=== PATIENT | female | born 1970 | race Caucasian/White ===

== ENCOUNTER → 2018-09-04 07:24 | Outpatient (CLI) | payer OTHER, SELFPAY ==
[2018-09-04 08:30] LABS: Alanine Aminotransferase 22 IU/L (9-52); Albumin 4.3 g/dL (3.5-5.0); Albumin Globulin Ratio 1.7 (1.0-2.8); Alkaline Phosphatase 70 U/L (38-126); Aspartate Aminotransferase 18 IU/L (14-36); BUN Creatinine Ratio 18.3 (6-22); Bilirubin Total 0.8 mg/dL (0.2-1.3); Blood Urea Nitrogen 11 mg/dL (7-17); Calcium 9.8 mg/dL (8.4-10.2); Carbon Dioxide 29 mmol/L (22-32); Chloride 101 mmol/L (98-107); Cholesterol 216 mg/dL (140-199); Estimated Glomerular Filt Rate > 60.0 mL/min (>60); Globulin 2.5 g/dL (1.7-4.1); Glucose 80 mg/dL (70-100); HDL Cholesterol 42 mg/dL (40-60); HEMOLYSIS < 15 (0-50); LDL Cholesterol Calculated 134 mg/dL (<100); Potassium 4.6 mmol/L (3.4-5.1); Sodium 142 mmol/L (137-145); Total Protein 6.8 g/dL (6.3-8.2); Triglycerides 198 mg/dL (35-150)
[2018-09-04 08:35] LABS: Hemoglobin A1C% w Est Avg Glu 4.8 % (4.0-6.0)
== END ==
PROVIDERS: PCP Physician Assistant; Visit Provider Physician Assistant
DX: E78.5 Hyperlipidemia, unspecified (principal); E88.81 Metabolic syndrome and other insulin resistance
CPT/HCPCS: 36415; 80053; 80061; 83036

== ENCOUNTER → 2019-06-02 07:22 | Outpatient (CLI) | payer OTHER, SELFPAY ==
[2019-06-02 08:02] LABS: Hemoglobin A1C% w Est Avg Glu 4.7 % (4.0-6.0)
[2019-06-02 08:17] LABS: Alanine Aminotransferase 17 IU/L (9-52); Albumin 4.3 g/dL (3.5-5.0); Albumin Globulin Ratio 1.5 (1.0-2.8); Alkaline Phosphatase 84 U/L (38-126); Aspartate Aminotransferase 19 IU/L (14-36); BUN Creatinine Ratio 18.3 (6-22); Bilirubin Total 0.6 mg/dL (0.2-1.3); Blood Urea Nitrogen 11 mg/dL (7-17); Carbon Dioxide 30 mmol/L (22-32); Chloride 100 mmol/L (98-107); Cholesterol 253 mg/dL (140-199); Estimated Glomerular Filt Rate > 60.0 mL/min (>60); Globulin 2.9 g/dL (1.7-4.1); Glucose 99 mg/dL (70-100); HDL Cholesterol 46 mg/dL (40-60); HEMOLYSIS < 15 (0-50); Potassium 4.7 mmol/L (3.4-5.1); Sodium 137 mmol/L (137-145); Total Protein 7.2 g/dL (6.3-8.2); Triglycerides 435 mg/dL (35-150)
[2019-06-02 08:48] LABS: Microalbumi Creatinin Ratio Ur 3.8 ug/mg CR (<30); Microalbumin Urine Random 0.7 mg/dL (0-1.6)
== END ==
PROVIDERS: PCP Physician Assistant; Visit Provider Physician Assistant
DX: E78.2 Mixed hyperlipidemia (principal); R73.01 Impaired fasting glucose
CPT/HCPCS: 36415; 80053; 80061; 82043; 82570; 83036

== ENCOUNTER → 2020-08-30 17:04 | Outpatient (CLI) | payer OTHER, SELFPAY ==
[2020-08-30 18:10] LABS: Add Manual Diff / Slide Review NO; Basophils Absolute Auto 0 /uL (0-100); Basophils Percent Auto 0.5 % (0-2); Eosinophils Absolute Auto 100 /uL (0-450); Eosinophils Percent Auto 1.1 % (2-4); Hematocrit 41.5 % (36-46); Lymphocytes Absolute Auto 2100 /uL (1100-4500); Lymphocytes Percent Auto 30.3 % (25-40); Mean Corpuscular HGB Conc 33.8 % (30-36); Mean Corpuscular Hemoglobin 30.3 PG (26-34); Mean Corpuscular Volume 89.7 fL (80-100); Monocytes Absolute Auto 400 /uL (0-900); Monocytes Percent Auto 5.1 % (3-14); Neutrophils Absolute Auto 4400 /uL (1500-7000); Platelet Count 272 X10^3/uL (150-400); Red Blood Cell Count 4.63 X10^6/uL (4.0-5.2); Red Cell Distribution Width 13.3 % (11.6-14.8); White Blood Cell Count 7.1 X10^3/uL (4.5-11.0)
[2020-08-30 18:14] LABS: Appearance Urine UA CLEAR; Bilirubin Urine UA NEGATIVE (NEGATIVE); Color Urine UA YELLOW; Glucose Urine UA NEGATIVE (Negative); Ketones Urine UA NEGATIVE (NEGATIVE); Leukocyte Esterase Urine UA NEGATIVE (NEGATIVE); Nitrite Urine UA NEGATIVE (Negative); Occult Blood Urine UA NEGATIVE (Negative); Protein Urine UA NEGATIVE (Negative); Specific Gravity Urine UA 1.025 (1.000-1.035); Urobilinogen Urine UA 0.2 E.U./dL (0.2)
[2020-08-30 18:22] LABS: Alanine Aminotransferase 20 IU/L (<35); Albumin 4.6 g/dL (3.5-5.0); Albumin Globulin Ratio 1.4 (1.0-2.8); Alkaline Phosphatase 73 U/L (38-126); Aspartate Aminotransferase 23 IU/L (14-36); BUN Creatinine Ratio 15.1 (6-22); Bilirubin Total 0.8 mg/dL (0.2-1.3); Blood Urea Nitrogen 11 mg/dL (7-17); Carbon Dioxide 31 mmol/L (22-32); Chloride 101 mmol/L (98-107); Cholesterol 228 mg/dL (140-199); Estimated Glomerular Filt Rate > 60.0 mL/min (>60); Globulin 3.3 g/dL (1.7-4.1); Glucose 85 mg/dL (70-100); HDL Cholesterol 52 mg/dL (40-60); HEMOLYSIS < 15 (0-50); Hemoglobin A1C% w Est Avg Glu 4.9 % (4.0-6.0); LDL Cholesterol Calculated 156 mg/dL (<100); Potassium 3.8 mmol/L (3.4-5.1); Sodium 137 mmol/L (137-145); Total Protein 7.9 g/dL (6.3-8.2); Triglycerides 100 mg/dL (35-150)
[2020-08-30 18:48] LABS: pH Urine UA 5.5 (4.5-8.0)
[2020-08-30 18:50] LABS: Bacteria Urine Occasional (0-1); Culture Indicated Urine Cult Not Indicated; Mucus Urine 2+ (Negative); RBC Urine 1-5/HPF (0-5/HPF); Squamous Epithelial Cell Urine 1-5 /HPF (0-5/HPF); WBC Urine 1-5/HPF (0-5/HPF)
[2020-08-30 18:52] LABS: TSH w/ Reflex to FT4 2.03 uIU/mL (0.47-4.68)
== END ==
PROVIDERS: PCP Family Medicine; Referring Provider Family Medicine; Visit Provider Family Medicine
DX: Z00.00 Encounter for general adult medical examination without abnormal findings (principal); K58.9 Irritable bowel syndrome, unspecified
CPT/HCPCS: 36415; 80053; 80061; 81001; 83036; 84443; 85025

== ENCOUNTER → 2020-09-23 12:32 | Outpatient (CLI) | payer OTHER, SELFPAY ==
--- NOTE | 2020-09-23 | DI.MG.S_ITS ---
UNILATERAL RIGHT DIGITAL DIAGNOSTIC MAMMOGRAM 3D/2D WITH ADDITIONAL VIEWS: 09/23/2020 CLINICAL: Additional evaluation requested from prior study. Comparison is made to exams dated: 08/20/2020 mammogram - [facility], 09/23/2017 mammogram, and 08/14/2016 mammogram - [facility]. There are scattered fibroglandular elements in right breast. The previously described possible developing architectural distortion in the right breast posterior depth lateral region seen on the craniocaudal view only is not reproduced and presumably represented superimposed breast tissue. No other significant masses or calcifications are seen in the breast. IMPRESSION: INCOMPLETE: NEEDS ADDITIONAL IMAGING EVALUATION The previously described asymmetry disperses with additional views and is consistent with summation artifact; however, US is recommended to confirm and is scheduled to immediately follow this exam. This exam was interpreted at Station ID: [id number]. NOTE: For mammograms, a report in lay terms will be sent to the patient. Approximately 15% of breast malignancies will not be visualized mammographically. In the management of a palpable breast mass, a negative mammogram must not discourage biopsy of a clinically suspicious lesion. Electronically Signed By: Mayank Watt M.D. aty/:09/23/2020 14:29:32 ACR BI-RADS Category 0: Incomplete [id number]
--- NOTE | 2020-09-23 12:33 | DI.US.S_ITS ---
PROCEDURE: US PELVIC COMPLETE INDICATIONS: Hx of ovarian cancer TECHNIQUE: Real-time scanning was performed of the pelvic organs, with image documentation. Additional endovaginal scanning was necessary due to incomplete visualization of the adnexal and endometrial structures by transabdominal scanning. COMPARISON: [facility], , PELVIC COMPLETE, 07/27/2008, 15:19. FINDINGS: Transabdominal scanning: A mild amount of free pelvic fluid is seen, which is considered to be within physiologic limits. Limited scanning through the kidneys shows no hydronephrosis. Endovaginal scanning: Uterus: Removed. The vaginal cuff is unremarkable. Ovaries: Status post right oophorectomy. The left ovary measures 4.4 x 2.5 x 2.1 cm. There is a cyst seen that measures up to 2.3 cm. The left ovary is only seen transabdominally. No adnexal masses are seen on either side. IMPRESSION: Status post hysterectomy and right oophorectomy. No adnexal masses are seen on either side. The left ovary demonstrates a 2.3 cm simple cyst, which is considered to be within physiologic limits. Dictated by: Hiro Carmichael M.D. on 09/23/2020 at 16:06 Approved by: Hiro Carmichael M.D. on 09/23/2020 at 16:08
--- NOTE | 2020-09-23 12:33 | DI.US.S_ITS ---
ULTRASOUND OF RIGHT BREAST: 09/23/2020 CLINICAL: Patient returns today to evaluate a focal asymmetry in the right breast. Comparison is made to exams dated: 09/23/2020 mammogram - [facility], 08/20/2020 mammogram - [facility], 09/23/2017 mammogram, and 08/14/2016 mammogram - [facility]. Color flow and real-time ultrasound of the right breast were performed. Amanda scale images of the real-time examination were reviewed. There is a 0.3 cm x 0.4 cm oval simple cyst in the right breast at 9 o'clock posterior depth 10 cm from the nipple. This oval simple cyst is anechoic. This is an incidental finding. No sonographic abnormalities seen to correlate with resolved possible architectural distortion in the region seen on mammographic evaluation. IMPRESSION: BENIGN There is no sonographic evidence of malignancy. Incidental benign 0.3 cm x 0.4 cm oval simple cyst at 9 o'clock posterior depth. A 1 year screening mammogram is recommended. Findings and recommendations were conveyed to the patient during today's evaluation. This exam was interpreted at Station ID: [id number]. Electronically Signed By: Mayank Watt M.D. aty/:09/23/2020 14:32:52 letter sent: Normal Exam Ultrasound BI-RADS: 2 Benign
== END ==
PROVIDERS: PCP Family Medicine; Referring Provider Family Medicine; Visit Provider Family Medicine
DX: R92.8 Other abnormal and inconclusive findings on diagnostic imaging of breast (principal); N60.01 Solitary cyst of right breast; Z12.73 Encounter for screening for malignant neoplasm of ovary; Z85.43 Personal history of malignant neoplasm of ovary; N83.292 Other ovarian cyst, left side; Z90.710 Acquired absence of both cervix and uterus
CPT/HCPCS: 76642; 76830; 76856; 77065; G0279

== ENCOUNTER → 2020-10-28 10:16 | Outpatient (CLI) | payer OTHER, SELFPAY ==
[2020-10-28] MEDS: COVID-19 VACC(MODERNA-1)/PF 100 MCG/0.5 ML VIAL IM (10:24)
== END ==
PROVIDERS: PCP Family Medicine; Visit Provider Internal Medicine
DX: Z23 Encounter for immunization (principal)
CPT/HCPCS: 0011A; 91301

== ENCOUNTER → 2020-11-24 16:10 | Outpatient (CLI) | payer OTHER, SELFPAY ==
[2020-11-24] MEDS: COVID-19 VACC #2, MRNA(MOD) 100 MCG/0.5 ML VIAL IM (16:15)
== END ==
PROVIDERS: PCP Family Medicine; Visit Provider Internal Medicine
DX: Z23 Encounter for immunization (principal)
CPT/HCPCS: 0012A; 91301

== ENCOUNTER → 2021-03-23 13:49 | Outpatient (CLI) | payer OTHER, SELFPAY ==
[2021-03-23 14:15] LABS: Add Manual Diff / Slide Review NO; Basophils Absolute Auto 0 /uL (0-100); Basophils Percent Auto 0.6 % (0-2); Eosinophils Absolute Auto 200 /uL (0-450); Eosinophils Percent Auto 2.4 % (2-4); Hematocrit 40.7 % (36-46); Hemoglobin 13.4 g/dL (12.0-16.0); Lymphocytes Absolute Auto 2200 /uL (1100-4500); Lymphocytes Percent Auto 32.6 % (25-40); Mean Corpuscular Hemoglobin 29.5 PG (26-34); Mean Corpuscular Volume 89.3 fL (80-100); Monocytes Absolute Auto 500 /uL (0-900); Monocytes Percent Auto 7.2 % (3-14); Neutrophils Absolute Auto 3800 /uL (1500-7000); Neutrophils Percent Auto 57.2 % (50-75); Platelet Count 260 X10^3/uL (150-400); Red Blood Cell Count 4.56 X10^6/uL (4.0-5.2); White Blood Cell Count 6.7 X10^3/uL (4.5-11.0)
[2021-03-23 15:17] LABS: Alanine Aminotransferase 27 IU/L (<35); Albumin 4.5 g/dL (3.5-5.0); Albumin Globulin Ratio 1.5 (1.0-2.8); Alkaline Phosphatase 84 U/L (38-126); Aspartate Aminotransferase 29 IU/L (14-36); BUN Creatinine Ratio 20.3 (6-22); Bilirubin Total 0.5 mg/dL (0.2-1.3); Blood Urea Nitrogen 14 mg/dL (7-17); Calcium 10.2 mg/dL (8.4-10.2); Carbon Dioxide 27 mmol/L (22-32); Chloride 103 mmol/L (98-107); Estimated Glomerular Filt Rate > 60.0 mL/min (>60); Glucose 100 mg/dL (70-100); HEMOLYSIS < 15 (0-50); Potassium 4.6 mmol/L (3.4-5.1); Sodium 137 mmol/L (137-145); Total Protein 7.5 g/dL (6.3-8.2)
[2021-03-23 15:57] LABS: Thyroid Stimulating Hormone 0.772 uIU/mL (0.47-4.68)
== END ==
PROVIDERS: PCP Family Medicine; Referring Provider Registered Nurse; Visit Provider Registered Nurse
DX: E78.5 Hyperlipidemia, unspecified (principal); K58.9 Irritable bowel syndrome, unspecified; L65.9 Nonscarring hair loss, unspecified
CPT/HCPCS: 36415; 80053; 84443; 85025

== ENCOUNTER → 2021-03-24 10:26 | Outpatient (CLI) | payer OTHER, SELFPAY ==
[2021-03-24 12:11] LABS: Magnesium 2.1 mg/dL (1.6-2.3)
[2021-03-24 12:42] LABS: Free T3, Triiodothyronine Free 3.14 pg/mL (2.77-5.27); Free T4, Direct Thyroxine 0.86 ng/dL (0.78-2.19)
[2021-03-25 10:19] LABS: Thyroid Peroxidase Antibodies <9 IU/mL (0-34)
== END ==
PROVIDERS: PCP Family Medicine; Referring Provider Registered Nurse; Visit Provider Registered Nurse
DX: R53.83 Other fatigue (principal); Z79.899 Other long term (current) drug therapy
CPT/HCPCS: 36415; 83735; 84439; 84481; 86376

== ENCOUNTER → 2022-01-05 07:58 | Outpatient (CLI) | payer OTHER, SELFPAY ==
--- NOTE | 2022-01-05 07:59 | DI.US.S_ITS ---
PROCEDURE: US PELVIC COMPLETE INDICATIONS: FOLLOW-UP LEFT OVARIAN CYST TECHNIQUE: Real-time scanning was performed of the pelvic organs, with image documentation. Additional endovaginal scanning was necessary due to incomplete visualization of the adnexal and endometrial structures by transabdominal scanning. COMPARISON: [facility], , US PELVIC COMPLETE, 09/23/2020, 13:21. FINDINGS: Uterus: Removed. Ovaries: The right ovary is surgically absent. The left ovary measures 2.2 x 1.5 x 2.3 cm. Within it, there is a 1.4 x 0.8 x 0.9 cm simple cyst, which previously measured 2.3 x 2 x 2.1 cm. The left ovary is only seen transabdominally. No adnexal masses are seen on either side. Other: No pathologic free abdominal or pelvic fluid. IMPRESSION: Decreased size of the previously seen left ovarian cyst. This focus is considered to be within physiologic limits. Status post hysterectomy and right oophorectomy. We strive to produce accurate, complete, and clear reports of imaging services. To assist us in improving patient care, this report was composed using standard report templates and voice recognition software. Therefore, it may contain abnormal punctuation, insertions and/or omissions. Occasional wrong-word or sound-alike substitutions may occur. Though we review the report and make efforts to correct it, we do recommend that the report be read carefully in proper context to recognize any text inaccuracies. Dictated by: Hiro Carmichael M.D. on 01/05/2022 at 8:27 Approved by: Hiro Carmichael M.D. on 01/05/2022 at 8:29
== END ==
PROVIDERS: PCP Family Medicine; Referring Provider Family Medicine; Visit Provider Family Medicine
DX: R10.2 Pelvic and perineal pain (principal); N83.292 Other ovarian cyst, left side; Z85.43 Personal history of malignant neoplasm of ovary; Z90.710 Acquired absence of both cervix and uterus
CPT/HCPCS: 76830; 76856

== ENCOUNTER → 2022-06-12 16:58 | Outpatient (CLI) | payer OTHER, SELFPAY | PROVIDERS: PCP Family Medicine; Visit Provider Student in an Organized Health Care Education/Training Program | DX: N39.0 Urinary tract infection, site not specified (principal) | CPT/HCPCS: 87086 ==

== ENCOUNTER 2022-12-14 20:15 | Emergency (ER) | payer OTHER, SELFPAY ==
[2022-12-14 20:22] VITALS: BP 160/94; PULSE 77; RESP 22; TEMP 36.2; O2SAT 99; BMI 38.7
--- NOTE | 2022-12-14 20:40 | ED.HA ---
HPI - Headache General Chief Complaint: Headache Stated Complaint: Severe headache Time Seen by Provider: 12/14/22 20:36 Source: patient Mode of arrival: Ambulatory Limitations: no limitations History of Present Illness HPI Narrative: Patient is a 52 old female. Does have a history of migraine headaches. Is here for evaluation of a headache. States that it started this morning after she woke up and is progressively worse is the day went on. No fevers. She states it does feel somewhat different than her normal headaches is her normal headaches are normally does one-sided this is more generalized. No vision changes. Is having nausea. No fevers. Did try her medications at home prior to arrival without any improvement. Related Data Home Medications Medication Instructions Recorded Confirmed acetaminophen 500 mg tablet 1,000 mg PO PRN ##0 05/31/11 09/12/21 (Tylenol Extra Strength) loperamide 2 mg capsule (Imodium See Rx Instructions PO Q2-4H PRN 09/10/18 09/12/21 A-D) onabotulinumtoxinA 200 unit 200 unit IM .COMPLEX 09/10/18 09/12/21 solution for injection (Botox) Occipital nerve injections See Rx Instructions .Route .COMPLEX 06/04/19 09/12/21 theodore sinus PO BID 02/24/20 09/12/21 Previous Rx's Medication Instructions Recorded cetirizine 10 mg tablet 10 mg PO BID #60 tabs 09/12/21 epinephrine 0.3 mg/0.3 mL 0.3 mg (0.3 mL) IM Q5-15M PRN 09/12/21 injection, auto-injector (EpiPen anaphylaxis #2 ea 2-Sen) metformin 500 mg tablet 500 mg PO BID #180 tabs 09/12/21 sumatriptan succinate 100 mg 100 mg PO Q DAY PRN PRN migraine 09/12/21 tablet (Imitrex) headache #9 tabs tramadol 100 mg tablet 100 mg PO TID PRN pain #30 tabs 09/03/22 celecoxib 200 mg capsule See Rx Instructions .Route 09/12/22 .COMPLEX #90 caps fluoxetine 40 mg capsule See Rx Instructions .Route 09/12/22 .COMPLEX #90 caps nortriptyline 50 mg capsule See Rx Instructions .Route 09/12/22 .COMPLEX #90 caps pravastatin 20 mg tablet See Rx Instructions .Route 09/12/22 .COMPLEX #90 tabs tizanidine 4 mg tablet See Rx Instructions .Route 09/12/22 .COMPLEX #90 tabs estradiol 0.5 mg tablet 0.25 mg PO 3XW #90 tabs 10/01/22 azelastine 137 mcg (0.1 %) nasal 2 spray intranasal BID #30 mL 11/29/22 spray aerosol fenofibrate 160 mg tablet 160 mg PO QDAY #90 tabs 11/29/22 gabapentin 600 mg tablet 1,200 mg PO TID #180 tabs 11/29/22 (Neurontin) Allergies Allergy/AdvReac Type Severity Reaction Status Date / Time venom-honey bee Allergy Severe ANAPHYLACTIC Verified 12/14/22 20:25 [BEE VENOM (HONEY BEE)] SHOCK Penicillins [PENICILLINS] Allergy Intermediate SWELLING Verified 12/14/22 20:25 AND HIVES prochlorperazine AdvReac Intermediate JITTERY, Verified 12/14/22 20:25 [From COMPAZINE] HIGH PITCHED NOISE IN EARS, RESTLESSNESS Review of Systems Constitutional Constitutional: Reports system reviewed and no additional complaints, except as documented Eyes Eyes: Reports system reviewed and no additional complaints, except as documented ENT Ears, Nose, Mouth, and Throat: Reports system reviewed and no additional complaints, except as documented Gastrointestinal Gastrointestinal: Reports system reviewed and no additional complaints, except as documented Neurologic Neurologic: Reports system reviewed and no additional complaints, except as documented Hematologic/Lymphatic On Anticoagulants: No Patient History Medical History Breast anomaly Fatigue Fibrocystic breast changes, bilateral Internal thrombosed hemorrhoids Irritable bowel syndrome (IBS) Medication management Ovarian cyst Well adult exam Well adult exam Surgical History (Updated 09/12/21 @ 16:58 by Corey Maher DO) H/O hysterectomy with oophorectomy History of total left knee replacement Family History (Updated 09/12/21 @ 17:00 by Corey Maher DO) Mother AAA (abdominal aortic aneurysm) Daughter EDS (Bry-Danlos syndrome) Social History Smoking Status: Never smoker second hand exposure: Yes (As a child, until age 12) alcohol intake: current substance use type: does not use and other Smoking Status: Never smoker Substance Use Type: does not use Exam Initial Vital Signs Initial Vital Signs: Vital Signs Temperature 97.1 F L 12/14/22 20:22 Pulse Rate 77 12/14/22 20:22 Respiratory Rate 22 12/14/22 20:22 Blood Pressure 160/94 H 12/14/22 20:22 Pulse Oximetry 99 12/14/22 20:22 Oxygen Delivery Method 12/14/22 20:22 Const General: cooperative, healthy appearing and No ill appearing HENMT Head: normal to inspection Eyes General: Yes appearance normal, both eyes and all related structures Resp Effort & Inspection: normal respiratory effort Cardio Rate: regular rate Skin General: no rashes or lesions noted Neuro General: patient alert, patient awake, patient oriented x3 and moves all extremities Cognition: normal cognition Speech: speech normal Gait: normal gait Motor: muscle tone normal throughout Extrem General: normal to inspection Course Orders Ordered: Discontinued Medications Acetaminophen (Acetaminophen 325 Mg Tablet) 975 mg PO NOW ONE Stop: 12/14/22 20:41 Last Admin: 12/14/22 20:49 Dose: 975 mg Documented By: ALYSE Cyclobenzaprine HCl (Cyclobenzaprine 10 Mg Tablet) 10 mg PO NOW ONE Stop: 12/14/22 23:01 Last Admin: 12/14/22 23:04 Dose: 10 mg Documented By: AMAURI Cyclobenzaprine HCl (Cyclobenzaprine 10 Mg Prepack) 1 bottle MISC SEEINSTR ONE Stop: 12/14/22 23:38 Last Admin: 12/14/22 23:41 Dose: 1 bottle Documented By: AMAURI Diphenhydramine HCl (Diphenhydramine 50 Mg/Ml Vial) 25 mg IV NOW ONE Stop: 12/14/22 20:41 Last Admin: 12/14/22 20:48 Dose: 25 mg Documented By: ALYSE Hydromorphone HCl (Hydromorphone 0.5 Mg Inj) 0.5 mg IV NOW ONE Stop: 12/14/22 21:59 Last Admin: 12/14/22 22:18 Dose: 0.5 mg Documented By: AMAURI Sodium Chloride (Normal Saline 0.9%) 1,000 mls @ 1,000 mls/hr IV BOLUS ONE Stop: 12/14/22 21:39 Last Infusion: 12/14/22 21:49 Dose: 0 mls/hr Documented By: Admin: 12/14/22 20:48 Dose: 1,000 mls/hr Documented By: ALYSE Ketorolac Tromethamine (Ketorolac 30 Mg/Ml Vial) 30 mg IV NOW ONE Stop: 12/14/22 23:01 Last Admin: 12/14/22 23:04 Dose: 30 mg Documented By: AMAURI Metoclopramide HCl (Metoclopramide 10 Mg/2 Ml Inj) 10 mg IV NOW ONE Stop: 12/14/22 20:41 Last Admin: 12/14/22 20:49 Dose: 10 mg Documented By: ALYSE Vital Signs Vital signs: Vital Signs - 8 hr 12/14/22 20:22 12/14/22 23:43 Temperature 97.1 F L Pulse Rate 77 88 Respiratory Rate 22 16 Blood Pressure 160/94 H 144/72 H Pulse Oximetry 99 99 Oxygen Delivery Method Room Air MDM - Headache MDM Narrative Medical decision making narrative: After medications provided here in the emergency department patient's symptoms vastly improved. It was after the Toradol and the Flexeril that her headache improve the most. I suspect this was a tension headache. Low suspicion for intracranial hemorrhage. Low suspicion for meningitis. She denies any trauma. No indication for radiologic studies. After time and medications patient states she was feeling well enough to go home. Will discharge patient home with return precautions. She expressed understanding and agreement. Discharge Plan Departure Patient Disposition: Home Clinical Impression: Migraine Instructions: DI for Migraine Activity Restrictions/Additional Instructions: How recommend that you continue to take all of your medications as directed. Contact your primary doctor for a follow-up. Return to the emergency department for any new or worsening symptoms. Prescriptions: No Action onabotulinumtoxinA [Botox] 200 unit recon soln 200 unit IM .COMPLEX Label Comments: 200 unit IM Q 12 weeks; Rx Instructions: 200 unit IM Q 12 weeks; loperamide [Imodium A-D] 2 mg capsule See Rx Instructions PO Q2-4H PRN Label Comments: 2-4 tabs (2mg) PO every other day PRN Rx Instructions: 2-4 tabs (2mg) PO every other day PRN acetaminophen [Tylenol Extra Strength] 500 MG tablet 1,000 mg PO PRN Qty: 0 tramadol 100 mg tablet 100 mg PO TID PRN (Reason: pain) Qty: 30 2RF fluoxetine 40 mg capsule See Rx Instructions .ROUTE .COMPLEX Qty: 90 0RF Dose Instruction: TAKE 1 CAPSULE BY MOUTH DAILY Rx Instructions: TAKE 1 CAPSULE BY MOUTH DAILY tizanidine 4 mg tablet See Rx Instructions .ROUTE .COMPLEX Qty: 90 0RF Dose Instruction: TAKE 1 TABLET BY MOUTH AT BEDTIME Rx Instructions: TAKE 1 TABLET BY MOUTH AT BEDTIME nortriptyline 50 mg capsule See Rx Instructions .ROUTE .COMPLEX Qty: 90 0RF Dose Instruction: TAKE 1 CAPSULE BY MOUTH AT BEDTIME Rx Instructions: TAKE 1 CAPSULE BY MOUTH AT BEDTIME pravastatin 20 mg tablet See Rx Instructions .ROUTE .COMPLEX Qty: 90 0RF Dose Instruction: TAKE 1 TABLET BY MOUTH AT BEDTIME Rx Instructions: TAKE 1 TABLET BY MOUTH AT BEDTIME celecoxib 200 mg capsule See Rx Instructions .ROUTE .COMPLEX Qty: 90 0RF Dose Instruction: TAKE 1 CAPSULE BY MOUTH DAILY Rx Instructions: TAKE 1 CAPSULE BY MOUTH DAILY estradiol 0.5 mg tablet 0.25 mg PO 3XW Qty: 90 3RF gabapentin [Neurontin] 600 mg tablet 1,200 mg PO TID Qty: 180 0RF azelastine 137 mcg (0.1 %) aerosol,spray 2 spray NASAL BID Qty: 30 2RF fenofibrate 160 mg tablet 160 mg PO QDAY Qty: 90 0RF Occipital nerve injections See Rx Instructions .ROUTE .COMPLEX Label Comments: 1 injection about every 12 weeks. ; Rx Instructions: 1 injection about every 12 weeks. ; cetirizine 10 mg tablet 10 mg PO BID Qty: 60 2RF metformin 500 mg tablet 500 mg PO BID Qty: 180 3RF Rx Instructions: APPOINTMENT DUE FOR FURTHER REFILLS. THANK YOU! epinephrine [EpiPen 2-Sen] 0.3 mg/0.3 mL auto-injector 0.3 mg IM Q5-15M PRN (Reason: anaphylaxis) Qty: 2 3RF Rx Instructions: do not exceed 3 doses per episode sumatriptan succinate [Imitrex] 100 mg tablet 100 mg PO Q DAY PRN PRN (Reason: migraine headache) Qty: 9 3RF theodore sinus PO BID Referrals: Corey Maher DO [Primary Care Provider] - Stand Alone Forms: Patient Portal/API
[2022-12-14] MEDS: diphenhydrAMINE 50 MG/ML VIAL 25 MG IV (20:48)
[2022-12-14] MEDS: SODIUM CHLORIDE 0.9% 1,000 ML 1000 ML IV (20:48)
[2022-12-14] MEDS: ACETAMINOPHEN 325 MG TABLET 975 MG PO (20:49)
[2022-12-14] MEDS: METOCLOPRAMIDE 10 MG/2 ML INJ IV (20:49)
[2022-12-14] MEDS: HYDROMORPHONE 0.5 MG INJ IV (22:18)
[2022-12-14] MEDS: KETOROLAC 30 MG/ML VIAL IV (23:04)
[2022-12-14] MEDS: CYCLOBENZAPRINE 10 MG TABLET PO (23:04)
[2022-12-14] MEDS: CYCLOBENZAPRINE 10 MG PREPACK 1 BOTTLE MISC (23:41)
[2022-12-14 23:43] VITALS: BP 144/72; PULSE 88; RESP 16; O2SAT 99
== END 2022-12-14 23:45 | disposition home or self-care (01) ==
PROVIDERS: Emergency Provider Emergency Medicine; PCP Family Medicine
DX: G43.909 Migraine, unspecified, not intractable, without status migrainosus (principal)
CPT/HCPCS: 96361; 96374; 96375; 99284; J1170; J1200; J1885; J2765

== ENCOUNTER → 2023-01-04 07:42 | Outpatient (CLI) | payer OTHER, SELFPAY ==
[2023-01-04 09:18] LABS: Hemoglobin A1C% w Est Avg Glu 5.1 % (4.0-6.0)
[2023-01-04 09:20] LABS: Add Manual Diff / Slide Review NO; Basophils Absolute Auto 0 /uL (0-100); Basophils Percent Auto 0.9 % (0-2); Eosinophils Absolute Auto 200 /uL (0-450); Eosinophils Percent Auto 3.5 % (2-4); Hematocrit 40.5 % (36-46); Lymphocytes Absolute Auto 1800 /uL (1100-4500); Mean Corpuscular HGB Conc 34.7 % (30-36); Mean Corpuscular Hemoglobin 29.9 PG (26-34); Mean Corpuscular Volume 86.2 fL (80-100); Monocytes Absolute Auto 400 /uL (0-900); Monocytes Percent Auto 7.8 % (3-14); Neutrophils Absolute Auto 3000 /uL (1500-7000); Neutrophils Percent Auto 54.8 % (50-75); Platelet Count 240 X10^3/uL (150-400); Red Cell Distribution Width 13.2 % (11.6-14.8); White Blood Cell Count 5.4 X10^3/uL (4.5-11.0)
[2023-01-04 09:32] LABS: Alanine Aminotransferase 20 IU/L (<35); Albumin 4.1 g/dL (3.5-5.0); Albumin Globulin Ratio 1.6 (1.0-2.8); Alkaline Phosphatase 92 U/L (38-126); Aspartate Aminotransferase 19 IU/L (14-36); BUN Creatinine Ratio 19.7 (6-22); Bilirubin Total 0.4 mg/dL (0.2-1.3); Blood Urea Nitrogen 12 mg/dL (7-17); Calcium 9.9 mg/dL (8.4-10.2); Carbon Dioxide 30 mmol/L (22-32); Chloride 103 mmol/L (98-107); Cholesterol 260 mg/dL (140-199); Estimated Glomerular Filt Rate > 60 mL/min (>60); Globulin 2.6 g/dL (1.7-4.1); Glucose 88 mg/dL (70-100); HDL Cholesterol 52 mg/dL (40-60); HEMOLYSIS < 15 (0-50); LDL Cholesterol Calculated 158 mg/dL (<100); Potassium 4.5 mmol/L (3.4-5.1); Sodium 140 mmol/L (137-145); Total Protein 6.7 g/dL (6.3-8.2); Triglycerides 249 mg/dL (35-150)
[2023-01-04 09:50] LABS: Free T4, Direct Thyroxine 1.04 ng/dL (0.78-2.19)
[2023-01-04 10:04] LABS: Thyroid Stimulating Hormone 1.09 uIU/mL (0.47-4.68)
== END ==
PROVIDERS: PCP Family Medicine; Referring Provider Family Medicine; Visit Provider Family Medicine
DX: Z00.00 Encounter for general adult medical examination without abnormal findings (principal); E78.5 Hyperlipidemia, unspecified; E88.81 Metabolic syndrome and other insulin resistance; K58.9 Irritable bowel syndrome, unspecified; R53.83 Other fatigue
CPT/HCPCS: 36415; 80053; 80061; 83036; 84439; 84443; 85025

== ENCOUNTER → 2023-02-06 16:10 | Outpatient (CLI) | payer OTHER, SELFPAY ==
--- NOTE | 2023-02-06 16:12 | DI.US.S_ITS ---
PROCEDURE: US PELVIC COMPLETE INDICATIONS: L ovary cysts TECHNIQUE: Real-time scanning was performed of the pelvic organs, with image documentation. Additional endovaginal scanning was necessary due to incomplete visualization of the adnexal and endometrial structures by transabdominal scanning. COMPARISON: [facility], , US PELVIC COMPLETE, 01/05/2022, 8:15. FINDINGS: Uterus: Surgically absent Ovaries: The right ovary is not visualized. The left ovary measures 2.6 x 1.3 x 1.4 cm, with a calculated ovarian volume of 2.5 cc. The ovaries have a normal sonographic appearance. There is a dominant 1.4 cm left ovarian follicle. There are fewer than 12 follicles within the left ovary. No adnexal masses are seen. Other: No pathologic free abdominal or pelvic fluid. IMPRESSION: Limited pelvic ultrasound. Left follicular cyst. We strive to produce accurate, complete, and clear reports of imaging services. To assist us in improving patient care, this report was composed using standard report templates and voice recognition software. Therefore, it may contain abnormal punctuation, insertions and/or omissions. Occasional wrong-word or sound-alike substitutions may occur. Though we review the report and make efforts to correct it, we do recommend that the report be read carefully in proper context to recognize any text inaccuracies. Dictated by: Rhona Fine M.D. on 02/06/2023 at 17:12 Approved by: Rhona Fine M.D. on 02/06/2023 at 17:14
== END ==
PROVIDERS: PCP Family Medicine; Referring Provider Family Medicine; Visit Provider Family Medicine
DX: N83.202 Unspecified ovarian cyst, left side (principal); Z90.710 Acquired absence of both cervix and uterus
CPT/HCPCS: 76830; 76856

== ENCOUNTER → 2023-04-11 13:27 | Outpatient (CLI) | payer OTHER, SELFPAY ==
[2023-04-11 14:46] LABS: Influenza A - CEPHEID Flu A NEGATIVE (NEGATIVE); Influenza B - CEPHEID Flu B NEGATIVE (NEGATIVE); Respiratory Syncytial Virus Negative (Negative)
[2023-04-11 15:55] LABS: COVID-19 CEPHEID 4-PLEX PCR Negative (Negative)
== END ==
PROVIDERS: PCP Family Medicine; Visit Provider Nurse Practitioner Family
DX: J02.9 Acute pharyngitis, unspecified (principal); J32.9 Chronic sinusitis, unspecified; R05.9 Cough, unspecified; R09.89 Other specified symptoms and signs involving the circulatory and respiratory systems; Z20.822 Contact with and (suspected) exposure to COVID-19
CPT/HCPCS: 0241U; 87070

== ENCOUNTER → 2023-04-30 18:19 | Outpatient (CLI) | payer OTHER, SELFPAY | PROVIDERS: PCP Family Medicine; Visit Provider Student in an Organized Health Care Education/Training Program | DX: R30.0 Dysuria (principal) | CPT/HCPCS: 87077; 87086; 87186 ==

== ENCOUNTER 2023-05-17 06:21 | Day surgery (SDC) | payer OTHER, SELFPAY ==
[2023-05-14 17:12] VITALS: BMI 39.6
[2023-05-17] VITALS (7 sets, daily range): BP systolic 117–135; BP diastolic 77–90; PULSE 53–82; RESP 10–17; TEMP 36.4–37; O2SAT 96–100; BMI 39.6
--- NOTE | 2023-05-17 | PATH_ITS ---
[facility] Accession Number: [id number] No. of containers..01 Tissue . 01 Material submitted: . ovary - LEFT OVARY . 01 Diagnosis: Left Ovary, Oophorectomy: Benign follicular cyst, 1.7 cm in diameter. Cystic follicle, 0.6 cm in diameter also present. Negative for significant atypia and malignancy. [facility] 05/24/2023 1631 Local . 01 Electronically signed: . Cam Ramos MD, Pathologist NPI- [id number] . 01 Gross description: . Received in formalin, labeled with the patient's name, , and left ovary, and consists of a muro, cerebriform ovary with a cystic structure visible on the external surface measuring 1.7 x 1.3 x 1.3 cm. The ovary weigh 5 g and measures 3.1 x 2.1 x 1.2 cm. The external surface is inked blue. Sectioning reveals a second cystic structure measuring 0.6 cm in greatest dimension. Both cystic structures are filled with muro serous fluid and have thin davenport with no excrescences identified. The remaining cut surface is physiologic and unremarkable. Manager Operations sections are submitted in cassettes A1-A3. ([id number]) /FRR 05/23/2023 0458 Local . 01 Pathologist provided ICD-10: R10.2, N83.209 . 01 CPT . 999045 Specimen Comment: A courtesy copy of this report has been sent to [phone] Performed at: 01 [facility] [address] [place] [address] [address] [facility], [place], [place] [id number] MD Jarett Rothman MD Phone: [phone]
[2023-05-17] MEDS: LACTATED RINGERS 1,000 ML 100 ML IV (07:33)
[2023-05-17] MEDS: ACETAMINOPHEN IV 1,000 MG/100 ML VIAL 400 MG IV (07:33)
[2023-05-17] MEDS: SCOPOLAMINE 1 PATCH TOP (07:33)
[2023-05-17] MEDS: GABAPENTIN 300 MG CAPSULE 900 MG PO (08:36)
--- NOTE | 2023-05-17 08:37 | PM.PREOP ---
Pre-operative Note COVID-19 Criteria for continued procedure: Continuing or worsening of significant or severe pain Interval Note History & Physical reviewed/Exam performed by Physician: Yes Changes to H&P: No
--- NOTE | 2023-05-17 09:07 | SUR.OPER ---
Lithotomy on padded OR bed, head on pillow, arms secured on padded arm boards at <90 degrees abduction. Legs secured in padded yellow fins stirrups.
[2023-05-17] MEDS: BUPIVACAINE 0.5% W/ EPI (PF) 30 ML VIAL INJ (09:15)
--- NOTE | 2023-05-17 09:29 | PM.OP.1 ---
Operative Date/Time/Diagnoses Date of procedure: 05/17/23 Time of procedure: 09:29 Pre-op diagnosis: Left lower quadrant pain, recurrent ovarian cysts Post-op diagnosis: same Procedure & Clinicians Procedure: Laparoscopic left oophorectomy Same procedure as scheduled: Yes Indications: Left pelvic pain and recurring ovarian cysts status post hysterectomy and right salpingo-oophorectomy Surgeon: Luann Rocha Click Yes if Unassisted: Yes Anesthesia Type: General Operative Notes Findings: Small left ovary with small ovarian cyst. Uterus bilateral fallopian tubes and right ovary absent. No endometriosis. No adhesions. No internal hernias. Normal bowel surface. Normal liver edge. Closure Type: primary Specimen(s): other (Left ovary) Estimated Blood Loss (mL): 3 Blood products transfused: none Procedure in detail: Patient was brought to the operating room where she underwent general anesthesia. She was placed in low yellowfin stirrups and prepped and draped in usual sterile fashion. Pulsatile stockings were in place and functional. Warming was with blankets. A moistened sponge stick was placed in the vagina. The area of the incisions were injected with half percent Marcaine with epinephrine. An incision was made in the umbilicus with a scalpel and dissected down to the fascial layer which was grasped and cut transversely. 0 Vicryl sutures were placed x2 to hold the edges of the fascia. The abdomen was entered bluntly with the S retractor. A Phipps cannula was placed in the abdomen. The abdomen was insufflated with CO2. 2 5 mm trochars were placed in the right and left lower quadrant under direct visualization after incising the skin. There did not appear to be any damage with placement of the trocars. The left ovary was grasped and the infundibulopelvic ligament was was cauterized and cut with the power seal. The ovary was placed in an Endo-Catch bag and brought out of the abdomen intact through the Phipps cannula. Adequate hemostasis was noted. The CO2 was allowed to escape from the abdomen. The trochars were removed. Skin was closed with 4-0 monocryl. The patient went to recovery room in good condition. Complications: none Post-operative Condition: stable Disposition: same day surgery Plan for aftercare: Home when awake and stable
[2023-05-17] MEDS: ONDANSETRON 4 MG/2 ML INJ IV (09:34)
[2023-05-17] MEDS: METOCLOPRAMIDE 10 MG/2 ML INJ IV (09:39)
== END 2023-05-17 10:32 | disposition home or self-care (01) ==
PROVIDERS: PCP Family Medicine; Referring Provider Specialist; Visit Provider Specialist
PROC: (CPT 58661; principal; 2023-05-17 09:00)
DX: N83.02 Follicular cyst of left ovary (principal)
CPT/HCPCS: 58661; J0131; J0330; J1100; J1885; J2250; J2405; J2704; J2765; J3010

== ENCOUNTER → 2023-12-23 17:46 | Outpatient (CLI) | payer OTHER, SELFPAY ==
[2023-12-23 18:00] LABS: Appearance Urine UA CLEAR; Bilirubin Urine UA NEGATIVE (NEGATIVE); Color Urine UA YELLOW; Glucose Urine UA NEGATIVE (Negative); Ketones Urine UA NEGATIVE (NEGATIVE); Leukocyte Esterase Urine UA NEGATIVE (NEGATIVE); Nitrite Urine UA NEGATIVE (Negative); Occult Blood Urine UA NEGATIVE (Negative); Protein Urine UA NEGATIVE (Negative); Specific Gravity Urine UA >=1.030 (1.000-1.035); Urobilinogen Urine UA 0.2 E.U./dL (0.2)
[2023-12-23 18:08] LABS: Bacteria Urine Many (>30); RBC Urine None Seen (0-5/HPF); Squamous Epithelial Cell Urine 5-10 /HPF (0-5/HPF); Urine Volume 10mL (spun); WBC Urine 30-100/HPF (0-5/HPF)
[2023-12-23 18:09] LABS: Culture Indicated Urine Specimen Cultured
== END ==
PROVIDERS: PCP Family Medicine; Visit Provider Physician Assistant Surgical
DX: N39.0 Urinary tract infection, site not specified (principal)
CPT/HCPCS: 81001; 87077; 87086; 87186

== ENCOUNTER → 2024-08-06 06:53 | Outpatient (CLI) | payer OTHER, SELFPAY ==
[2024-08-06 08:18] LABS: Add Manual Diff / Slide Review NO; Basophils Absolute Auto 0 /uL (0-100); Basophils Percent Auto 0.8 % (0-2); Eosinophils Absolute Auto 200 /uL (0-450); Eosinophils Percent Auto 3.1 % (2-4); Hematocrit 42.1 % (36-46); Lymphocytes Absolute Auto 1900 /uL (1100-4500); Lymphocytes Percent Auto 37.2 % (25-40); Mean Corpuscular HGB Conc 33.3 % (30-36); Mean Corpuscular Volume 87.1 fL (80-100); Monocytes Absolute Auto 400 /uL (0-900); Monocytes Percent Auto 6.8 % (3-14); Neutrophils Absolute Auto 2700 /uL (1500-7000); Neutrophils Percent Auto 52.1 % (50-75); Platelet Count 252 X10^3/uL (150-400); Red Blood Cell Count 4.83 X10^6/uL (4.0-5.2); Red Cell Distribution Width 13.6 % (11.6-14.8); White Blood Cell Count 5.2 X10^3/uL (4.5-11.0)
[2024-08-06 08:46] LABS: Alanine Aminotransferase 17 IU/L (<35); Albumin 4.3 g/dL (3.5-5.0); Albumin Globulin Ratio 1.6 (1.0-2.8); Alkaline Phosphatase 86 U/L (38-126); Aspartate Aminotransferase 22 IU/L (14-36); BUN Creatinine Ratio 18.9 (6-22); Bilirubin Total 0.6 mg/dL (0.2-1.3); Blood Urea Nitrogen 14 mg/dL (7-17); Calcium 10.1 mg/dL (8.4-10.2); Carbon Dioxide 27 mmol/L (22-32); Chloride 100 mmol/L (98-107); Cholesterol 264 mg/dL (140-199); Estimated Glomerular Filt Rate > 60 mL/min (>60); Globulin 2.7 g/dL (1.7-4.1); Glucose 88 mg/dL (70-100); HDL Cholesterol 61 mg/dL (40-60); HEMOLYSIS < 15 (0-50); LDL Cholesterol Calculated 176 mg/dL (<100); Potassium 4.6 mmol/L (3.4-5.1); Sodium 136 mmol/L (137-145); Triglycerides 133 mg/dL (35-150)
[2024-08-06 09:18] LABS: TSH w/ Reflex to FT4 5.48 uIU/mL (0.47-4.68)
[2024-08-06 09:53] LABS: Hemoglobin A1C% w Est Avg Glu 5.1 % (4.0-6.0)
[2024-08-06 10:04] LABS: Free T4, Direct Thyroxine 1.14 ng/dL (0.78-2.19)
== END ==
LOC: LAB 06:54
PROVIDERS: PCP Family Medicine; Referring Provider Family Medicine; Visit Provider Family Medicine
DX: R73.03 Prediabetes (principal); E78.5 Hyperlipidemia, unspecified
CPT/HCPCS: 36415; 80053; 80061; 83036; 84439; 84443; 85025